=== PATIENT | male | born 1970 | race Caucasian/White ===

== ENCOUNTER 2017-01-26 00:11 | Observation (INO) | payer BC ==
[~2017-01-26] VITALS: Ht 172.7 cm; Wt 73.0 kg
[2017-01-26] VITALS (8 sets, daily range): BP systolic 132–149; BP diastolic 86–93; PULSE 62–82; TEMP 36.6–37; O2SAT 94–98; Ht 172.7 cm; Wt 73.0 kg
[~2017-01-26 00:11] MED LIST: NXM/40 PO
[2017-01-26 01:29] LABS: BASO % 0.3 %; BASO ABS # 0.02 K/uL (0-0.2); COMPLETE YES; EOS % 2.6 %; HEMATOCRIT 41.8 % (42-52); IG% 0.2 %; LYMPH % 30.7 %; LYMPH ABS # 2.03 K/uL (1.2-3.4); MEAN CELL VOLUME 85.7 fL (80-100); MEAN CORPUSCULAR HEMOGLOBIN 31.6 pg (25-34); MEAN CORPUSCULAR HGB CONC 36.8 g/dl (32-36); MEAN PLATELET VOLUME 9.6 fL (7.4-10.4); NEUT % 58.2 %; PLATELET COUNT 228 K/uL (130-400); RED BLOOD COUNT 4.88 M/uL (4.7-6.1); WHITE BLOOD COUNT 6.62 K/uL (4.8-10.8)
[2017-01-26 01:47] LABS: BUN/CREATININE RATIO 23.7 (10-20); CALCIUM 8.9 mg/dl (8.5-10.1); CREATININE 1.1 mg/dl (0.60-1.40); POTASSIUM 3.3 mmol/L (3.5-5.1)
[2017-01-26] MEDS ORDERED: OMEP40CA41 PO (01:55)
[2017-01-26 02:05] LABS: PARTIAL THROMBOPLASTIN RATIO 1.1; PROTHROMBIN TIME (PATIENT) 10.8 SECONDS (9.0-12.0)
[2017-01-26] MEDS ORDERED: OPTIRAY 320 IV PRN (02:15)
--- NOTE | 2017-01-26 03:16 | EMERGENCY ROOM VISIT NOTE ---
History Report prepared by Josy: Rasheeda Alba Under the Supervision of: Dr. Al Arrington M.D. First contact with patient: 00:47 Chief Complaint: CARDIAC ASSESSMENT Stated Complaint: CHEST TIGHTNESS Nursing Triage Summary: Patient arrived ALS for evaluation of shortness of breath, shaking, tightness in chest. Denies radiation of pain. Patient appears anxious. Legs visibly shaking, patient taking deep breaths, moving all over the bed. Denies history of anxiety. Patient reports he was laying in bed when symptoms started. History of Present Illness The patient is a 46 year old male who presents to the Emergency Room with complaints of resolved chest tightness beginning 2 hours prior to arrival. The patient states that the tightness episode lasted for about 20 minutes. He states that when the tightness came on he was laying in bed. He notes that during the episode he experienced trouble breathing and trouble taking a deep breath. The patient arrived to the ED via EMS. En route he began shaking and was given Aspirin which helped resolve the tightness. He states that he has experienced this tightness twice before but it only lasted for a few minutes. He did follow up with his PCP and had a normal ECG. The patient was told to get a stress test which he has not yet done. The patient states that he is a very active bike rider and denies pain during his rides or with exertion. He does note that he is very stressed with work and travels a lot during this time of year for work. He states he was not stressed or anxious when the chest pain started. Yesterday the patient drove to [place] [facility]. He does state that he travels frequently. The patient denies diaphoresis, nausea, vomiting, diarrhea, abdominal pain, leg swelling or recent illness. 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 Review of Systems See HPI for pertinent positives & negatives. A total of 10 systems reviewed and were otherwise negative. Past Medical & Surgical Medical Problems: (1) Acid reflux Family History FH: myocardial infarction Social History Smoking Status: Never Smoker Smokeless Tobacco Use: No Alcohol Use: none Drug Use: none Marital Status: Housing Status: lives with family Occupation Status: employed Current/Historical Medications Scheduled Omeprazole (Prilosec), 40 MG PO DAILY Allergies Coded Allergies: Penicillins (Verified Allergy, Mild, 01/26/17) Physical Exam Vital Signs Date Time Temp Pulse Resp B/P Pulse Ox O2 Delivery O2 Flow Rate FiO2 01/26/17 01:15 77 18 147/98 98 Room Air 01/26/17 01:00 97 Room Air 01/26/17 00:20 88 01/26/17 00:16 36.8 86 18 197/111 98 Room Air 01/26/17 00:16 98 Room Air Physical Exam Constitutional: Vital signs reviewed. Eyes: Pupils are equal round reactive to light. Conjunctiva are noninjected. ENT: Pharynx is clear without erythema or exudate. Mucous membranes are moist. Neck supple without meningeal signs. Respiratory: Clear to auscultation bilaterally. Breath sounds are equal bilaterally. Cardiovascular: Regular rate and rhythm. No rubs or gallops. GI: Soft, nondistended and nontender. Bowel sounds are present. Musculoskeletal: No peripheral edema. No lower extremity tenderness. Integumentary: No cyanosis. Neurological: The patient is awake and alert. No focal deficits. Psychiatric: Normal affect. Medical Decision & Procedures ER Provider Diagnostic Interpretation: X-ray results as stated below per interpretation by me: Chest X-Ray: No acute pulmonary process. CTA of the chest: No evidence of central or segmental pulmonary embolus. The subsegmental pulmonary arteries cannot be evaluated secondary to breathing motion artifact. No thoracic aortic dissection or aneurysm. Lungs are clear. No pleural effusion or pneumothorax. Mild enlargement of the heart. No pericardial effusion. No significant adenopathy. Visualized upper abdomen is unremarkable. No acute osseous abnormality. Laboratory Results 01/26/17 01:10 Red Blood Count 4.88, Mean Corpuscular Volume 85.7, Mean Corpuscular Hemoglobin 31.6, Mean Corpuscular Hemoglobin Concent 36.8, Mean Platelet Volume 9.6, Neutrophils (%) (Auto) 58.2, Lymphocytes (%) (Auto) 30.7, Monocytes (%) (Auto) 8.0, Eosinophils (%) (Auto) 2.6, Basophils (%) (Auto) 0.3, Neutrophils # (Auto) 3.86, Lymphocytes # (Auto) 2.03, Monocytes # (Auto) 0.53, Eosinophils # (Auto) 0.17, Basophils # (Auto) 0.02 01/26/17 01:10 Test 01/26/17 01:10 01/26/17 01:13 White Blood Count 6.62 K/uL (4.8-10.8) Red Blood Count 4.88 M/uL (4.7-6.1) Hemoglobin 15.4 g/dL (14.0-18.0) Hematocrit 41.8 % (42-52) Mean Corpuscular Volume 85.7 fL (80-100) Mean Corpuscular Hemoglobin 31.6 pg (25-34) Mean Corpuscular Hemoglobin Concent 36.8 g/dl (32-36) Platelet Count 228 K/uL (130-400) Mean Platelet Volume 9.6 fL (7.4-10.4) Neutrophils (%) (Auto) 58.2 % Lymphocytes (%) (Auto) 30.7 % Monocytes (%) (Auto) 8.0 % Eosinophils (%) (Auto) 2.6 % Basophils (%) (Auto) 0.3 % Neutrophils # (Auto) 3.86 K/uL (1.4-6.5) Lymphocytes # (Auto) 2.03 K/uL (1.2-3.4) Monocytes # (Auto) 0.53 K/uL (0.11-0.59) Eosinophils # (Auto) 0.17 K/uL (0-0.5) Basophils # (Auto) 0.02 K/uL (0-0.2) RDW Standard Deviation 37.9 fL (36.4-46.3) RDW Coefficient of Variation 12.1 % (11.5-14.5) Immature Granulocyte % (Auto) 0.2 % Immature Granulocyte # (Auto) 0.01 K/uL (0.00-0.02) Prothrombin Time 10.8 SECONDS (9.0-12.0) Prothromb Time International Ratio 1.0 (0.9-1.1) Activated Partial Thromboplast Time 27.8 SECONDS (21.0-31.0) Partial Thromboplastin Ratio 1.1 D-Dimer 1290 ug/L FEU (0-500) Anion Gap 8.0 mmol/L (3-11) Est Creatinine Clear Calc Drug Dose 78.5 ml/min Estimated GFR () 92.8 Estimated GFR (Non- 80.1 BUN/Creatinine Ratio 23.7 (10-20) Calcium Level 8.9 mg/dl (8.5-10.1) Bedside Troponin I 0.000 ng/ml (0-0.045) Laboratory results as reviewed by me. ECG Indication: chest pain Rate (beats per minute): 81 Rhythm: normal sinus Findings: RBBB (incomplete), no acute ischemic change, no ectopy ED Course 0113: The patient was evaluated in room A2. A complete history and physical exam was performed. Medical Decision This is a 46-year-old male who presents with chest discomfort. Differential diagnosis includes unstable angina, OR, pulmonary embolism, GERD, pleurisy, anxiety. I did perform a limited focused review of portions of the patient's old chart on the electronic medical record. The patient has had no recent pertinent visits to this hospital. I did evaluate the patient as noted above. IV access was established. 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 I did order and personally review the patient's 12-lead EKG and chest x-ray as described above. I did order and review the patient's blood work as noted in the electronic medical record. His troponin is negative. D-dimer is elevated. I did order a CT of the chest. I did review the images myself as well as the radiology report as described above. There is no evidence of pulmonary embolism although there was some motion artifact. Because of his elevated d-dimer and history of frequent travel I did order a ultrasound of his lower extremities to rule out DVT. This is pending at this time. I did discuss the test results with the patient. I did recommend hospitalization for repeat cardiac enzymes and stress testing due to his significant family history as well as borderline hypertension. I did discuss the case with the hospitalist and shoe caser. Consults Consulting Physician: Dr. Powers Returned Call: 03:14 Impression Primary Impression: Acute chest pain Scribe Attestation The scribe's documentation has been prepared under my direct and personally reviewed by me in its entirety. I confirm that the note above accurately reflects all work, treatment, procedures, and medical decision making performed by me. Departure Information Dispostion Being Evaluated By Hospitalist Patient Instructions My [facility]
[2017-01-26] MEDS ORDERED: POTASSIUM CHLORIDE 10 MEQ TABCR PO STA (04:42)
[2017-01-26] MEDS ORDERED: IV FLUIDS COMPLETED PRN (06:30)
--- NOTE | 2017-01-26 06:36 | DIAGNOSTIC IMAGING REPORT ---
ULTRASOUND VENOUS DOPPLER LWR EXT BILA CLINICAL HISTORY: Chest pain and elevated d-dimer. COMPARISON STUDY: November 2009 FINDINGS: Real-time and color flow Doppler imaging were performed. Flow was seen within the femoral, popliteal and calf veins with no intraluminal thrombus demonstrated. The saphenous vein is patent. IMPRESSION: No evidence of lower extremity DVT. Electronically signed by: Quinn Lopez M.D. 01/26/2017 6:34 AM Dictated Date/Time: 01/26/2017 6:34 AM
--- NOTE | 2017-01-26 06:53 | DIAGNOSTIC IMAGING REPORT ---
CHEST ONE VIEW PORTABLE CLINICAL HISTORY: Atypical chest pain and shortness of breath COMPARISON STUDY: 12/25/2007 FINDINGS: The cardiac and mediastinal contours are normal. There is no evidence of focal pulmonary consolidation. There is no evidence of failure. No pleural effusions are visualized.[ IMPRESSION: No active disease in the chest. Electronically signed by: Quinn Lopez M.D. 01/26/2017 6:51 AM Dictated Date/Time: 01/26/2017 6:51 AM
--- NOTE | 2017-01-26 07:08 | History and Physical ---
History & Physical Date & Time of Service: Jan 26, 2017 at 06:45 Chief Complaint: Chest Tightness Primary Care Physician: Joaquin Ramon III, M.D. History of Present Illness Source: patient, clinic records, hospital records 46 year old male with no sgnificant PMH presents to the Emergency Room with complaints of resolved chest tightness. Pt said that that the chest tightness occurred last night while laying in the bed associated with difficulty to breath. he said that the tightness episode lasted for about 20 minutes. PT said that while coming to the hospital via EMS he started to shake because he felt very anxious for not knowing what was going on with him. He was giving aspirin. Pt said that he experienced similar chest tightness few months ago but only lasted for a few minutes. he said that his PCP got an EKG and he was normal. He said that his PCP has been trying to get him to do a stress test but his insurance denied it. He denies any diaphoresis, nausea, palpitation, vomiting, diarrhea, abdominal pain, leg swelling or recent illness. He said that he has a significant family history of heart attack. His dad with a heart attack at age 57 and his paternal grand father also with a heart attack. Currently pt said that he feels fine with no symptoms. Family History FH: myocardial infarction Social History Smoking Status: Never Smoker Smokeless Tobacco Use: No Drug Use: none Marital Status: Occupational Status: employed Immunizations History of Influenza Vaccine: No History of Tetanus Vaccine?: Yes History of Pneumococcal: No History of Hepatitis B Vaccine: No Allergies Coded Allergies: Penicillins (Verified Allergy, Mild, 01/26/17) Home Medications Scheduled Omeprazole (Prilosec), 40 MG PO DAILY Review of Systems Constitutional: No chills, No fever, No sweats Eyes: No discharge, No redness ENT: No hearing loss, No nasal symptoms, No unusual epistaxis Respiratory: No cough, No sputum, No wheezing Cardiovascular: + problem reported (chest tightness), No chest pain, No claudication, No edema, No orthopnea Abdomen: No nausea, No pain, No vomiting Musculoskeletal: No calf pain, No joint pain, No swelling Genitourinary - Male: No dysuria, No hematuria Neurologic: No memory loss, No paralysis, No weakness Psychiatric: No substance abuse Hematologic / Lymphatic: No night sweats Integumentary: No itch, No rash Physical Exam Vital Signs Date Time Temp Pulse Resp B/P Pulse Ox O2 Delivery O2 Flow Rate FiO2 01/26/17 06:11 98 Room Air 01/26/17 05:59 36.6 62 18 148/93 01/26/17 05:28 70 18 124/71 97 Room Air 01/26/17 04:07 72 01/26/17 04:01 77 18 139/100 96 Room Air 01/26/17 01:15 77 18 147/98 98 Room Air 01/26/17 01:00 97 Room Air 01/26/17 00:20 88 01/26/17 00:16 36.8 86 18 197/111 98 Room Air 01/26/17 00:16 98 Room Air General Appearance: WD/WN, no apparent distress Head: normocephalic, atraumatic Eyes: normal inspection, PERRL, EOMI ENT: normal ENT inspection, hearing grossly normal Neck: supple, no JVD Respiratory/Chest: lungs clear, normal breath sounds, no respiratory distress, no accessory muscle use Cardiovascular: regular rate, rhythm, no JVD, no murmur Abdomen/GI: normal bowel sounds, non tender, soft Back: normal inspection, no CVA tenderness Extremities/Musculoskelatal: normal inspection, no calf tenderness 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, no motor/sensory deficits, alert, normal mood/affect Skin: normal color, warm/dry, no rash Diagnostics Laboratory Results Results Past 24 Hours Test 01/26/17 01:10 01/26/17 01:13 Range/Units White Blood Count 6.62 4.8-10.8 K/uL Red Blood Count 4.88 4.7-6.1 M/uL Hemoglobin 15.4 14.0-18.0 g/dL Hematocrit 41.8 42-52 % Mean Corpuscular Volume 85.7 80-100 fL Mean Corpuscular Hemoglobin 31.6 25-34 pg Mean Corpuscular Hemoglobin Concent 36.8 32-36 g/dl Platelet Count 228 130-400 K/uL Mean Platelet Volume 9.6 7.4-10.4 fL Neutrophils (%) (Auto) 58.2 % Lymphocytes (%) (Auto) 30.7 % Monocytes (%) (Auto) 8.0 % Eosinophils (%) (Auto) 2.6 % Basophils (%) (Auto) 0.3 % Neutrophils # (Auto) 3.86 1.4-6.5 K/uL Lymphocytes # (Auto) 2.03 1.2-3.4 K/uL Monocytes # (Auto) 0.53 0.11-0.59 K/uL Eosinophils # (Auto) 0.17 0-0.5 K/uL Basophils # (Auto) 0.02 0-0.2 K/uL RDW Standard Deviation 37.9 36.4-46.3 fL RDW Coefficient of Variation 12.1 11.5-14.5 % Immature Granulocyte % (Auto) 0.2 % Immature Granulocyte # (Auto) 0.01 0.00-0.02 K/uL Prothrombin Time 10.8 9.0-12.0 SECONDS Prothromb Time International Ratio 1.0 0.9-1.1 Activated Partial Thromboplast Time 27.8 21.0-31.0 SECONDS Partial Thromboplastin Ratio 1.1 D-Dimer 1290 0-500 ug/L FEU Sodium Level 141 136-145 mmol/L Potassium Level 3.3 3.5-5.1 mmol/L Chloride Level 103 98-107 mmol/L Carbon Dioxide Level 30 21-32 mmol/L Anion Gap 8.0 3-11 mmol/L Blood Urea Nitrogen 26 7-18 mg/dl Creatinine 1.10 0.60-1.40 mg/dl Est Creatinine Clear Calc Drug Dose 78.5 ml/min Estimated GFR () 92.8 Estimated GFR (Non- 80.1 BUN/Creatinine Ratio 23.7 10-20 Random Glucose 127 70-99 mg/dl Calcium Level 8.9 8.5-10.1 mg/dl Bedside Troponin I 0.000 0-0.045 ng/ml Diagnostic Radiology Chest X-Ray: No acute pulmonary process. Impression Assessment and Plan 49 yo Male very active with no significant PMH Chest Tightness Need to R/O acs Mostly atypical has a significant family ho of heart disease ( dad of heart attack at age 57) EKG shown SNR with no significant ST changes Will consider to get a stress test in am 1 troponin neg follow CM, repeat EKG this morning, check lipid panel continue monitor in telemetry Elevated D-dimer CTA chest negative for PE venous doppler of LE pending Hypokalemia k replaced Elevated BP Mostly situational continue monitor BP GERD Prilosec changed to pantaprazole DVT px on lovenox subq CODE status Full code Level of Care Telemetry Advanced Directives Existing Living Will: No Existing Power of Shoulder Sawyer: No Resuscitation Status FULL RESUSCITATION VTE Prophylaxis VTE Risk Assessment Done? Y/N: Yes Risk Level: Low Given or contraindicated: Enoxaparin (Lovenox)SQ
[2017-01-26 08:02] LABS: CHOLESTEROL 184 mg/dl (0-200); CHOLESTEROL/HDL RATIO 3.8; HDL CHOLESTEROL 49 mg/dl; LDL CHOLESTEROL CALCULATED 125 mg/dl; TRIGLYCERIDES 50 mg/dl (0-150); VERY LOW DENSITY LIPOPROT CALC 10 mg/dl
--- NOTE | 2017-01-26 08:29 | DIAGNOSTIC IMAGING REPORT ---
CHEST CTA for PULMONARY ARTERIES CT DOSE: 323.42 mGy.cm HISTORY: Chest tightness. Assess for pulmonary embolus. TECHNIQUE: Multiaxial CT images of the chest were performed following the intravenous administration of contrast to evaluate the pulmonary arteries. Maximal intensity projection images were also obtained. COMPARISON STUDY: Chest 01/26/2017. FINDINGS: There is a normal caliber thoracic aorta with no evidence for dissection. The majority of the segmental and subsegmental pulmonary arteries are nondiagnostic due to the motion artifact. Remaining pulmonary arteries show no evidence for pulmonary embolus. No pleural effusions. No pneumothorax. The liver and spleen are unremarkable. No mediastinal or hilar lymphadenopathy. The central airways are patent. The lungs are clear. IMPRESSION: No evidence for pulmonary embolus with limitations as described above. Electronically signed by: Moise Hernández M.D. 01/26/2017 8:27 AM Dictated Date/Time: 01/26/2017 8:22 AM
[2017-01-26] MEDS ORDERED: PANTOprazole SOD 40 MG TAB PO SCH (09:00)
[2017-01-26] MEDS ORDERED: ENOXAPARIN 40 MG/0.4 ML SYR SQ SCH (09:00)
[2017-01-26] MEDS ORDERED: ENOXAPARIN 40 MG/0.4 ML SYR SC SCH (09:00)
[2017-01-26] MEDS ORDERED: POTASSIUM CHLORIDE 20 MEQ TABCR PO STA (12:44)
--- NOTE | 2017-01-26 12:53 | Progress Note ---
Internal Med Progress Note Date of Service: Jan 26, 2017. Provider Documentation: SUBJECTIVE: Patient is doing well. Denies any complaints S/P Stress test today No chest pain, tightness, nausea, vomiting, palpitations, nausea, vomiting, diaphoresis Not on oxygen OBJECTIVE: Vital Signs-as noted below Exam: General-AAOX3, no distress Neck-Supple, No JVD Lungs-AEBE, no wheezing, rhonchi Heart-S1, S2 normal, no murmurs Abdomen-soft, non tender non distended, bs present Extremities-No edema Lab data as noted below. ASSESSMENT & PLAN: 49 yo Male very active with no significant PMH CHEST TIGHTNESS: Rule out ischemia Risk factors: Family hx of premature CAD +ve -EKG x 2- no acute changes -S/P Stress echo/exercise- awaiting results; Lipid panel reviewed, CT scan chest /cxr- no PE/acute abnormalities ELEVATED D DIMER CTA chest negative for PE venous doppler of LE Negative HYPOKALEMIA Replaced ELEVATED BP Mostly situational -Stable GERD Prilosec DVT px on lovenox subq CODE status Full code DISPOSITION Okay to discharge after negative stress test Vital Signs: Date Time Temp Pulse Resp B/P Pulse Ox O2 Delivery O2 Flow Rate FiO2 01/26/17 11:15 36.6 82 18 133/86 94 Room Air 01/26/17 08:00 96 Room Air 01/26/17 07:48 37.0 63 18 149/91 96 Room Air 01/26/17 06:11 98 Room Air 01/26/17 05:59 36.6 62 18 148/93 01/26/17 05:28 70 18 124/71 97 Room Air 01/26/17 04:07 72 01/26/17 04:01 77 18 139/100 96 Room Air 01/26/17 01:15 77 18 147/98 98 Room Air 01/26/17 01:00 97 Room Air 01/26/17 00:20 88 01/26/17 00:16 36.8 86 18 197/111 98 Room Air 01/26/17 00:16 98 Room Air Lab Results: Results Past 24 Hours Test 01/26/17 01:10 01/26/17 01:13 01/26/17 07:00 01/26/17 07:09 Range/Units White Blood Count 6.62 4.8-10.8 K/uL Red Blood Count 4.88 4.7-6.1 M/uL Hemoglobin 15.4 14.0-18.0 g/dL Hematocrit 41.8 42-52 % Mean Corpuscular Volume 85.7 80-100 fL Mean Corpuscular Hemoglobin 31.6 25-34 pg Mean Corpuscular Hemoglobin Concent 36.8 32-36 g/dl Platelet Count 228 130-400 K/uL Mean Platelet Volume 9.6 7.4-10.4 fL Neutrophils (%) (Auto) 58.2 % Lymphocytes (%) (Auto) 30.7 % Monocytes (%) (Auto) 8.0 % Eosinophils (%) (Auto) 2.6 % Basophils (%) (Auto) 0.3 % Neutrophils # (Auto) 3.86 1.4-6.5 K/uL Lymphocytes # (Auto) 2.03 1.2-3.4 K/uL Monocytes # (Auto) 0.53 0.11-0.59 K/uL Eosinophils # (Auto) 0.17 0-0.5 K/uL Basophils # (Auto) 0.02 0-0.2 K/uL RDW Standard Deviation 37.9 36.4-46.3 fL RDW Coefficient of Variation 12.1 11.5-14.5 % Immature Granulocyte % (Auto) 0.2 % Immature Granulocyte # (Auto) 0.01 0.00-0.02 K/uL Prothrombin Time 10.8 9.0-12.0 SECONDS Prothromb Time International Ratio 1.0 0.9-1.1 Activated Partial Thromboplast Time 27.8 21.0-31.0 SECONDS Partial Thromboplastin Ratio 1.1 D-Dimer 1290 0-500 ug/L FEU Sodium Level 141 136-145 mmol/L Potassium Level 3.3 3.5-5.1 mmol/L Chloride Level 103 98-107 mmol/L Carbon Dioxide Level 30 21-32 mmol/L Anion Gap 8.0 3-11 mmol/L Blood Urea Nitrogen 26 7-18 mg/dl Creatinine 1.10 0.60-1.40 mg/dl Est Creatinine Clear Calc Drug Dose 78.5 ml/min Estimated GFR () 92.8 Estimated GFR (Non- 80.1 BUN/Creatinine Ratio 23.7 10-20 Random Glucose 127 70-99 mg/dl Calcium Level 8.9 8.5-10.1 mg/dl Bedside Troponin I 0.000 0-0.045 ng/ml Creatine Kinase MB Ratio 0-3.0 Creatine Kinase MB 1.0 0.5-3.6 ng/ml Troponin I < 0.015 0-0.045 ng/ml Triglycerides Level 50 0-150 mg/dl Cholesterol Level 184 0-200 mg/dl HDL Cholesterol 49 mg/dl LDL Cholesterol, Calculated 125 mg/dl VLDL Cholesterol, Calculated 10 mg/dl Cholesterol/HDL Ratio 3.8
[2017-01-26] MEDS ORDERED: NURSING VERBAL MED ORDER ONE (13:15)
--- NOTE | 2017-01-26 15:09 | Discharge Instructions ---
Discharge Instructions Date of Service Jan 26, 2017. Admission Reason for Admission: Chest Tightness Discharge Discharge Diagnosis / Problem: 1. Chest tightness, acute ischemia ruled out Discharge Goals Goal(s): Diagnostic testing, Therapeutic intervention Activity Recommendations Activity Limitations: resume your previous activity . Instructions / Follow-Up Instructions / Follow-Up No changes in medications FOLLOW UP 1. Follow up with Dr Ramon 01/31/17 at 1:45 PM Current Hospital Diet Patient's current hospital diet: AHA Diet (Heart Healthy) Discharge Diet Recommended Diet: AHA Diet (Heart Healthy) Pending Studies Studies pending at discharge: no Laboratory Results Lipid Panel Test 01/26/17 07:09 Range/Units Triglycerides Level 50 0-150 mg/dl Cholesterol Level 184 0-200 mg/dl HDL Cholesterol 49 mg/dl Cholesterol/HDL Ratio 3.8 LDL Cholesterol, Calculated 125 mg/dl Medical Emergencies . Who to Call and When: Medical Emergencies: If at any time you feel your situation is an emergency, please call 911 immediately. . Non-Emergent Contact Non-Emergency issues call your: Primary Care Provider . . "Provider Documentation" section prepared by Priya David. . VTE Core Measure Inpt VTE Proph given/why not?: Enoxaparin (Lovenox)SQ
--- NOTE | 2017-01-26 15:16 | Discharge Summary ---
Discharge Summary Date of Service Jan 26, 2017. Discharge Summary Admission Date: Jan 26, 2017 at 04:30 Discharge Date: Jan 26, 2017 Discharge Disposition: Home Principal Diagnosis: 1. Chest tightness, ruled out ischemia 2. Hypokalemia Secondary Diagnoses/Problems: 1. GERD Procedures: Tele monitoring Stress Echocardiogram (Exercise) Serial EKG Serial Troponin Consultations: None Pending Studies/Follow-Up: Instructions / Follow-Up No changes in medications FOLLOW UP 1. Follow up with Dr Ramon 01/31/17 at 1:45 PM Medication Reconciliation Continued Medications: Omeprazole (Prilosec) 40 Mg Cap 40 MG PO DAILY, CAP Admission Information HPI (per Admitting provider): 46 year old male with no sgnificant PMH presents to the Emergency Room with complaints of resolved chest tightness. Pt said that that the chest tightness occurred last night while laying in the bed associated with difficulty to breath. he said that the tightness episode lasted for about 20 minutes. PT said that while coming to the hospital via EMS he started to shake because he felt very anxious for not knowing what was going on with him. He was giving aspirin. Pt said that he experienced similar chest tightness few months ago but only lasted for a few minutes. he said that his PCP got an EKG and he was normal. He said that his PCP has been trying to get him to do a stress test but his insurance denied it. He denies any diaphoresis, nausea, palpitation, vomiting, diarrhea, abdominal pain, leg swelling or recent illness. He said that he has a significant family history of heart attack. His dad with a heart attack at age 57 and his paternal grand father also with a heart attack. Currently pt said that he feels fine with no symptoms. 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, no motor/sensory deficits, alert , normal mood/affect Skin: normal color, warm/dry, no rash Hospital Course 49 yo Male very active with no significant PMH CHEST TIGHTNESS; Ruled out ischemia Risk factors: Family hx of premature CAD + ve -EKG x 2- no acute changes -S/P Stress echo/exercise- Negative per discussion with Dr Rebolledo over phone ; Lipid panel reviewed, CT scan chest/cxr- no PE/acute abnormalities ELEVATED D DIMER CTA chest negative for PE venous doppler of LE Negative HYPOKALEMIA Replaced ELEVATED BP Mostly situational -Stable GERD Prilosec DVT px on lovenox subq CODE status Full code DISPOSITION Okay to discharge today Total time spent on discharge = 25 minutes This includes examination of the patient, discharge planning, medication reconciliation, and communication with other providers. Discharge Instructions Discharge Goals Goal(s): Diagnostic testing, Therapeutic intervention Activity Recommendations Activity Limitations: resume your previous activity . Instructions / Follow-Up Instructions / Follow-Up No changes in medications FOLLOW UP 1. Follow up with Dr Ramon 01/31/17 at 1:45 PM Current Hospital Diet Patient's current hospital diet: AHA Diet (Heart Healthy) Discharge Diet Recommended Diet: AHA Diet (Heart Healthy) Pending Studies Studies pending at discharge: no Laboratory Results Lipid Panel Test 01/26/17 07:09 Range/Units Triglycerides Level 50 0-150 mg/dl Cholesterol Level 184 0-200 mg/dl HDL Cholesterol 49 mg/dl Cholesterol/HDL Ratio 3.8 LDL Cholesterol, Calculated 125 mg/dl Medical Emergencies . Who to Call and When: Medical Emergencies: If at any time you feel your situation is an emergency, please call 911 immediately. . Non-Emergent Contact Non-Emergency issues call your: Primary Care Provider . . "Provider Documentation" section prepared by Priya David. . VTE Core Measure Inpt VTE Proph given/why not?: Enoxaparin (Lovenox)SQ
--- NOTE | 2017-01-26 16:43 | EXERCISE STRESS ECHO ---
*NOTICE TO RECEIVING [employer]ENCY This information is strictly Confidential and protected under [place] law. [place] law prohibits you from making any further disclosure of this information unless further disclosure is expressly permitted by the written consent of the person to whom it pertains or is authorized by law. A general authorization for the release of medical or other information is not sufficient for this purpose. Hospital accepts no responsibility if the information is made available to any other person, INCLUDING THE PATIENT. Interpretation Summary * Name: PARVEEN MUNIZ Study Date: 01/26/2017 08:46 AM BP: 145/97 mmHg * Patient Location: C.2T\S\S233\S\1 HR: 68 * : 1970 (M/d/yyyy) Gender: Male Height: 68 in * Age: 46 yrs Ethnicity: [place] Weight: 160 lb * Ordering Physician: Priya David. * Referring Physician: Self, Referred * Performed By: Malgorzata Kulkarni [facility] * * Reason For Study: CHEST PAIN * BSA: 1.9 m2 * STRESS STUDY: Normal exercise stress echocardiogram. No echocardiographic or ECG evidence of myocardial ischemia having achieved heart rate adequate for diagnostic purposes. * -- Conclusions -- * STRESS STUDY: Normal exercise stress echocardiogram. No echocardiographic or ECG evidence of myocardial ischemia having achieved heart rate adequate for diagnostic purposes. Procedure Details * ECHOEX, CPT #[id number] * ECHO COLOR FLOW, CPT #[id number] * ECHO DOPPLER, CPT #[id number] * TST, CPT #[id number] Left Ventricle * The left ventricle is normal in size. * There is no thrombus. * There is normal left ventricular wall thickness. * Ejection Fraction = 50-55%. * The left ventricular ejection fraction is normal. * The left ventricular wall motion is normal. Right Ventricle * The right ventricle is normal in size and function. Atria * The left atrial size is normal. * Right atrial size is normal. * Jumprope atrial septum without shunt by color doppler. Mitral Valve * The mitral valve is normal in structure and function. Tricuspid Valve * The tricuspid valve is not well visualized, but is grossly normal. * There is trace tricuspid regurgitation. Aortic Valve * The aortic valve is normal in structure and function. Pulmonic Valve * The pulmonic valve is not well visualized. Great Vessels * The aortic root is normal size. Pericardium * There is no pericardial effusion. Stress Parameters * The baseline ECG displays normal sinus rhythm. * Stress ECG: No ST changes. No arrhythmias. * The stress portion of this study was personally supervised by the undersigned interpreting physician. * Rest heart rate was '68' BPM. * Rest blood pressure was '145/97' * Maximum heart rate achieved was 173 bpm. * Maximum heart rate was 99 % of maximum age-predicted heart rate. * Maximum blood pressure was '191/99' * Total exercise time was '11:00' * Maximum exercise MET level achieved was '13.30' METS * Maximum treadmill speed was '16.00' miles per hour. * Maximum treadmill elevation was '16.00'% grade. MMode 2D Measurements and Calculations IVSd 1.1 cm IVSs 1.8 cm LVIDd 4.4 cm LVIDs 3.3 cm LVPWd 1.0 cm LVPWs 1.4 cm IVS/LVPW 1.1 FS 25.9 % EDV(Teich) 89.2 ml ESV(Teich) 43.7 ml EF(Teich) 51.0 % EDV(cubed) 87.1 ml ESV(cubed) 35.5 ml EF(cubed) 59.3 % % IVS thick 55.5 % % LVPW thick 34.4 % LV mass(C)d 167.8 grams LV mass(C)dI 90.3 grams/m\S\2 LV mass(C)s 193.9 grams LV mass(C)sI 104.3 grams/m\S\2 SV(Teich) 45.5 ml SI(Teich) 24.5 ml/m\S\2 SV(cubed) 51.6 ml SI(cubed) 27.8 ml/m\S\2 Ao root diam 3.7 cm Ao root area 10.7 cm\S\2 ACS 2.4 cm LA dimension 3.1 cm LA/Ao 0.84 LVOT diam 2.0 cm LVOT area 3.1 cm\S\2 LVAd ap4 31.0 cm\S\2 LVLd ap4 7.4 cm EDV(MOD-sp4) 108.4 ml EDV(sp4-el) 110.1 ml LVAs ap4 17.6 cm\S\2 LVLs ap4 5.6 cm ESV(MOD-sp4) 48.5 ml ESV(sp4-el) 47.4 ml EF(MOD-sp4) 55.3 % EF(sp4-el) 56.9 % LVAd ap2 27.0 cm\S\2 LVLd ap2 8.5 cm EDV(MOD-sp2) 72.9 ml EDV(sp2-el) 72.8 ml LVAs ap2 13.4 cm\S\2 LVLs ap2 5.5 cm ESV(MOD-sp2) 28.1 ml ESV(sp2-el) 27.7 ml EF(MOD-sp2) 61.5 % EF(sp2-el) 61.9 % LVLd %diff 13.4 % EDV(MOD-bp) 95.7 ml LVLs %diff -0.65 % ESV(MOD-bp) 36.7 ml EF(MOD-bp) 61.6 % SV(MOD-sp4) 59.9 ml SI(MOD-sp4) 32.2 ml/m\S\2 SV(MOD-sp2) 44.8 ml SI(MOD-sp2) 24.1 ml/m\S\2 SV(MOD-bp) 59.0 ml SI(MOD-bp) 31.7 ml/m\S\2 SV(sp4-el) 62.7 ml SI(sp4-el) 33.7 ml/m\S\2 SV(sp2-el) 45.0 ml SI(sp2-el) 24.2 ml/m\S\2 Doppler Measurements and Calculations MV E max bonny 57.2 cm/sec MV A max bonny 55.5 cm/sec MV E/A 1.0 MV P1/2t max bonny 62.1 cm/sec MV P1/2t 149.2 msec MVA(P1/2t) 1.5 cm\S\2 MV dec slope 121.9 cm/sec\S\2 MV dec time 0.22 sec Ao V2 max 159.2 cm/sec Ao max PG 10.1 mmHg Ao max PG (full) 5.9 mmHg LIBORIO(V,A) 2.0 cm\S\2 LIBORIO(V,D) 2.0 cm\S\2 LV V1 max PG 4.2 mmHg LV V1 max 102.8 cm/sec PA V2 max 105.9 cm/sec PA max PG 4.5 mmHg
== END 2017-01-26 15:29 | disposition home or self-care (01) ==
LOC: ENRESERVTM → ENRESERVDT → EDBD 00:11 → C.EDA 00:12 → C.2T 04:30
PROVIDERS: ADMIT Internal Medicine; ATTEND Internal Medicine
DX: R07.89 Other chest pain (principal); K21.9 Gastro-esophageal reflux disease without esophagitis; Z82.49 Family history of ischemic heart disease and other diseases of the circulatory system; Z79.899 Other long term (current) drug therapy; E87.6 Hypokalemia; R03.0 Elevated blood-pressure reading, without diagnosis of hypertension